=== PATIENT | female | born 1940 | race Two or more races ===

== ENCOUNTER 2022-08-23 13:00 | Emergency (ER) | payer OTHER ==
[~2022-08-23] VITALS: Ht 162.6 cm; Wt 68.0 kg
[2022-08-23] MEDS ORDERED: CARVEDILOL3.125 MG (13:30)
[2022-08-23] MEDS ORDERED: OMEPRAZOLE20 MG PO (13:31)
[2022-08-23] MEDS ORDERED: NAMENDA5 MG PO (13:31)
== END 2022-08-23 16:45 | disposition home or self-care (01) ==
LOC: ER 13:00
DX: K62.3 Rectal prolapse (principal)

== ENCOUNTER 2022-09-07 11:53 | Emergency (ER) | payer OTHER ==
[~2022-09-07] VITALS: Ht 157.5 cm; Wt 54.4 kg
[~2022-09-07 11:53] MED LIST: CARVEDILOL3.125 MG; NAMENDA5 MG PO; OMEPRAZOLE20 MG PO
== END 2022-09-07 16:43 | disposition home or self-care (01) ==
LOC: ER 11:53
DX: K62.3 Rectal prolapse (principal); G30.8 Other Alzheimer's disease; F02.80 Dementia in other diseases classified elsewhere, unspecified severity, without behavioral disturbance, psychotic disturbance, mood disturbance, and anxiety

== ENCOUNTER 2022-09-14 15:08 | Inpatient (IN) | payer OTHER ==
[~2022-09-14] VITALS: Ht 162.6 cm; Wt 54.9 kg
[2022-09-15] MEDS ORDERED: SYNTHROID88 MCG PO (13:45)
[2022-09-15] MEDS ORDERED: ZOCOR40 MG PO (13:45)
[2022-09-15] MEDS ORDERED: RIVASTIGMINE1 EAC1 TD (13:46)
== END 2022-10-13 14:35 | disposition home or self-care (01) | DRG 331 ==
LOC: SURG 09-21 10:15 → O/R 10-12 09:54 → SURH 10-12 15:03
PROVIDERS: ADMIT Colon & Rectal Surgery; ATTEND Colon & Rectal Surgery
PROC: 0DBP7ZZ Excision of Rectum, Via Natural or Artificial Opening (ICD-10-PCS; 2022-10-12)
PROC: 0DUR0JZ Supplement Anal Sphincter with Synthetic Substitute, Open Approach (ICD-10-PCS; 2022-10-12)
PROC: 0JQC0ZZ Repair Pelvic Region Subcutaneous Tissue and Fascia, Open Approach (ICD-10-PCS; principal; 2022-10-12 11:00)
DX: K62.3 Rectal prolapse (principal); R15.9 Full incontinence of feces; N81.6 Rectocele; Z20.822 Contact with and (suspected) exposure to COVID-19

== ENCOUNTER → 2022-10-12 09:52 | Outpatient (CLI) | payer OTHER ==
[~2022-10-12 09:52] MED LIST changes: +RIVASTIGMINE1 EAC1 TD; +SYNTHROID88 MCG PO; +ZOCOR40 MG PO
== END | disposition home or self-care (01) ==
LOC: LAB 09:52
DX: Z20.822 Contact with and (suspected) exposure to COVID-19 (principal)